=== PATIENT | female | born 1950 | race Caucasian/White ===

== ENCOUNTER 2020-10-31 14:16 | Emergency (ER) | payer MEDICARE ==
[~2020-10-31] VITALS: Ht 162.6 cm; Wt 69.9 kg
[2020-10-31 14:17] VITALS: BP 141/81
[2020-10-31] MEDS ORDERED: MACR50CA10 PO (14:24)
--- NOTE | 2020-10-31 15:16 | REP ---
INDICATION: PAIN/SWELLING. COMPARISON: None. TECHNIQUE: Left {lower extremity duplex venous scanning is performed from the groin to the ankle level. FINDINGS: The deep veins are anechoic and fully compressible from the groin to the popliteal fossa in the left lower extremity. Color flow imaging is homogeneous. Spectral Doppler interrogation demonstrates intact respiratory variation in flow and normal manual augmentation of flow. There is no evidence of deep vein thrombosis above the knee. There is no evidence of DVT in the visualized calf veins. Doppler interrogation of the contralateral common femoral vein shows normal symmetric respiratory phasicity. IMPRESSION: No evidence of DVT in the left lower extremity femoropopliteal veins. No DVT in the visible portions of the calf veins. There is a 3.9 cm Carlos's cyst in the left popliteal fossa. <Electronically signed by Tyler Sellers > 10/31/20 2010
[2020-10-31] MEDS ORDERED: ACETAMINOPHEN 500 MG TAB PO ONE (19:00)
--- NOTE | 2020-10-31 19:22 | REP ---
INDICATION: knee pain and LE swelling, no TAMI COMPARISON: None. TECHNIQUE: AP, lateral, bilateral oblique and sunrise views. FINDINGS: Mild tricompartmental osteoarthritic degenerative changes. No acute fracture or dislocation. No significant swelling. No obvious effusion. IMPRESSION: Mild tricompartmental arthritic changes. <Electronically signed by Sarabjit Mcguire > 10/31/20 [id number]
== END 2020-10-31 20:33 | disposition home or self-care (01) ==
LOC: M ED 14:16
DX: R22.42 Localized swelling, mass and lump, left lower limb (principal); Z88.0 Allergy status to penicillin

== ENCOUNTER → 2020-12-20 | Outpatient (CLI) | payer MEDICARE ==
[~2020-12-20] MED LIST: MACR50CA10 PO
--- NOTE | 2020-12-20 14:57 | REP ---
INDICATION: PAIN IN LT KNEE. COMPARISON: None. TECHNIQUE: Sagittal spin-echo proton density, T2 STIR and T2 FLASH. Coronal spin-echo proton density and fat suppressed proton density. Axial fat suppressed proton density. FINDINGS: There is grade 3 signal change seen within a truncated posterior horn of the medial meniscus. There is grade 3 signal change seen in the posterior horn of the lateral meniscus mid body contiguous with the superior articular surface. The anterior horn is within normal limits. The anterior and posterior cruciate ligaments are intact. The quadriceps and patellar tendons are intact. The medial and lateral collateral ligaments are intact. There is T2 hyper signal seen surrounding the mid and inferior portion of the medial collateral ligament. The medial and lateral patellar retinacula are intact. There is thinning and irregularity of the articular cartilages of all 3 compartments particularly the patellar articular cartilage and medial compartmental articular cartilages. There is a joint effusion with superior parapatellar plica. There is a 4.7 x 1 x 1.9 cm sized fluid collection seen between the tendons of the medial head of the gastrocnemius muscle and the semimembranosus tendon. IMPRESSION: 1. There is a bucket-handle tear of the medial meniscus. 2. The posterior horn of the lateral meniscus is torn. 3. 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 4. There is a joint effusion and parapatellar plica. 5. There is a 4.7 x 1 x 1.9 cm sized Carlos's cyst. 6. Other findings as described above. <Electronically signed by Diego Espinoza > 12/20/20 [id number]
== END ==
LOC: M PLAIMG 13:04
PROVIDERS: ATTEND Orthopaedic Surgery
DX: S83.252A Bucket-handle tear of lateral meniscus, current injury, left knee, initial encounter (principal); W18.30XA Fall on same level, unspecified, initial encounter; Y92.009 Unspecified place in unspecified non-institutional (private) residence as the place of occurrence of the external cause

== ENCOUNTER → 2021-01-17 | Outpatient (CLI) | payer MEDICARE | LOC: M LABSMTC 12:07 | PROVIDERS: ATTEND Anesthesiology | DX: Z01.818 Encounter for other preprocedural examination (principal); Z11.52 Encounter for screening for COVID-19 ==

== ENCOUNTER 2021-01-22 08:58 | Day surgery (SDC) | payer MEDICARE ==
[~2021-01-22] VITALS: Ht 162.6 cm; Wt 69.8 kg
[~2021-01-22 08:58] MED LIST changes: +LR 1,000 ML IV ONE; +VANCOMYCIN HCL 1,000 MG, VIAL MATE ADAPTER 1 EACH in NS 250 ML IV ONE
--- OUTSIDE RECORDS SUMMARY | 2021-01-22 09:07 | CCD ---
Author Author [facility] Organization [facility] Address Unknown Phone Unavailable Support Name Relationship Address Phone RE Next Of Kin Unknown Unavailable DANA HAGER Next Of Kin [facility] [place] [address] [place] [address] Unavailable Re-disclosure Warning The records that you are about to access may contain information from federally-assisted alcohol or drug abuse programs. If such information is present, then the following federally mandated warning applies: This information has been disclosed to you from records protected by federal confidentiality rules (42 CFR part 2). The federal rules prohibit you from making any further disclosure of this information unless further disclosure is expressly permitted by the written consent of the person to whom it pertains or as otherwise permitted by 42 CFR part 2. A general authorization for the release of medical or other information is NOT sufficient for this purpose. The Federal rules restrict any use of the information to criminally investigate or prosecute any alcohol or drug abuse patient.The records that you are about to access may contain highly sensitive health information, the redisclosure of which is protected by Article 27-F of the [facility] Public Health law. If you continue you may have access to information: Regarding HIV / AIDS; Provided by facilities licensed or operated by the [facility] Office of Mental Health; or Provided by the [facility] Office for People With Developmental Disabilities. If such information is present, then the following [facility] mandated warning applies: This information has been disclosed to you from confidential records which are protected by state law. State law prohibits you from making any further disclosure of this information without the specific written consent of the person to whom it pertains, or as otherwise permitted by law. Any unauthorized further disclosure in violation of state law may result in a fine or care home sentence or both. A general authorization for the release of medical or other information is NOT sufficient authorization for further disc losure. Medications No Information Insurance Providers Payer name Policy type / Coverage type Policy ID Covered alliance party ID Covered alliance party's relationship to beltran Policy Beltran Plan Information [facility] [employer] [id number] SP [id number] MEDICARE [id number] SP [id number] Problems, Conditions, and Diagnoses No Information Surgeries/Procedures No Information Results No Information Social History No Information
[2021-01-22] MEDS ORDERED: diphenhydrAMINE 50MG/ML VIAL (J1200) IV ONE (11:10)
[2021-01-22] MEDS ORDERED: EPINEPHrine INJ 1 MG/ML 1ML AMP As Ordered ONE (13:54)
[2021-01-22] MEDS ORDERED: fentaNYL 100 MCG/2 ML INJECTION (J3010) As Ordered ONE (14:06)
[2021-01-22] MEDS ORDERED: dexameTHASONE 4 MG/ML 1ML VIAL (J1100 PER 1MG) As Ordered ONE (14:06)
[2021-01-22] MEDS ORDERED: LIDOCAINE 2% 100MG/5ML SDV (FOR ANES.) As Ordered ONE (14:06)
[2021-01-22] MEDS ORDERED: MIDAZOLAM INJ 2MG/2ML VIAL (J2250 PER 1MG) As Ordered ONE (14:06)
[2021-01-22] MEDS ORDERED: ONDANSETRON 4MG/2ML VIAL As Ordered ONE (14:06)
[2021-01-22] MEDS ORDERED: propofoL 200 MG/20 ML VIAL As Ordered ONE (14:06)
[2021-01-22] MEDS ORDERED: BUPIVACAINE/EPIN 0.25% 30 ML VIAL As Ordered ONE (14:25)
[2021-01-22] MEDS ORDERED: ACETAMINOPHEN 1000MG 100ML IV BTL (OFIRMEV) (J0131 PER 10MG) As Ordered ONE (14:31)
--- NOTE | 2021-01-22 15:23 | ROOPDOC ---
[facility] Report Of Operation Report of Operation DATE OF PROCEDURE: 01/22/21 PREPROCEDURE DIAGNOSES: [Left knee medial meniscal bucket-handle tear with underlying try compartmental degenerative changes.]. POSTPROCEDURE DIAGNOSES: [Left knee medial meniscal posterior medial tear, tricompartmental degenerative changes of the knee]. PROCEDURE PERFORMED: [Left knee arthroscopy, partial medial meniscectomy.]. SURGEON: [Royce carbone], JAR FILLER: , ANESTHESIA: [General anesthesia]. ESTIMATED BLOOD LOSS: Approximately [20 mils] mL. COMPLICATIONS: [None]. REMARKS: [Try compartmental degenerative changes with softening of the cartilage and crabmeat appearance of the cartilage diffusely. No specific full-thickness cartilage deficits. Synovectomy was a bit red and inflamed. ACL and PCL seem intact.]. FINDINGS: [Posterior medial medial meniscal tear. No bucket-handle tear visualized. Mild lateral meniscus posterior root tear] SPECIMENS REMOVED: [Partial medial meniscectomy] PROCEDURE NOTE: . DESCRIPTION OF PROCEDURE: [Patient was met in the holding area. H&P was reviewed. Imaging and consent confirmed. Patient opted proceed with the above procedure. Taken down off room air as [facility]. Patient was transferred onto the operative room table. Under general psych in usual manner. Right leg was put in lithotomy position. Left leg was placed in the leg immobilizer with the knee flexed 90 degrees with a table break all bony prominences well-padded. Patient was then prepped and draped in usual manner. 20 he was on the left upper thigh but not used during the procedure Surgical timeout was performed Using the medial soft spot. Portals were infiltrated with Marcaine and epinephrine. Medial portal and the medial soft spot. Using a blunt trocar through the medial portal advanced into the suprapatellar pouch. Diagnostic arthroscopy was then performed. Inflamed synovium in the suprapatellar pouch. Softening of the cartilage on the patella and trochlear groove. No full- thickness cartilage loss. Medial lateral gutters were clear. Moving into the lateral compartment. There was softening and crabmeat appearance in areas of the lateral compartment. No specific tears in the meniscus possible posterior root tear. Meniscus was stable. Moving to the medial compartment. Used a needle for placement of the lateral compartment arthroscopic portal. Portal made with 11 blade. Blunt trocar visualized through the portal. Shaver introduced with a portal and fat pad debridement performed on arthroscopic guidance. Once we could visualize the medial compartment better. Ulnar gutter was clear, posterior medial tear of the medial meniscus. No bucket-handle tear. ACL and PCL intact. We then debrided the posterior medial medial meniscal tear first with a biter and then with the shaver. We performed a partial most meniscectomy back to a more stable endpoint. Another quick diagnostic arthroscopy was performed. We do not see any need for any further debridement all. Wound was suction dried. Medial and lateral arthroscopy portals were closed using 3-0 Monocryl and Steri-Strips. Sterile absorbent bandage was placed over the knee. Patient was then removed from the bolsters. Awakened from anesthesia. Placed onto the stretcher and taken to recovery in a stable manner. Plan: Patient to be weightbearing as tolerated. Follow-up in the office in 1 to 2 weeks Aspirin 81 mg p.o. twice daily for DVT prophylaxis for 30 days. ROYCE PERLA MD Jan 22, 2021 15:23
[2021-01-22] MEDS ORDERED: LR 1,000 ML IV SCH ×2 (15:25)
[2021-01-22] MEDS ORDERED: ONDANSETRON 4MG/2ML VIAL IV PRN (15:25)
[2021-01-22] MEDS ORDERED: OXYC1TAB23 PO (15:26)
[2021-01-22] MEDS: oxyCODONE 5MG TAB PO PRN ×2 (15:36→16:10)
[2021-01-22] MEDS: fentaNYL 100 MCG/2 ML INJECTION (J3010) IV PRN ×4 (15:36→15:53)
[2021-01-22] MEDS: HYDROMORPHONE HCL 0.5 MG/ 0.5 ML SYRINGE (J1170 PER 1) IV PRN ×4 (15:56→16:17)
[2021-01-22] MEDS ORDERED: ONDANSETRON 4MG/2ML VIAL IV SCH (18:15)
[2021-01-22 19:13] VITALS: BP 130/72
== END 2021-01-22 19:20 | disposition home or self-care (01) ==
LOC: M SDC 08:58
PROVIDERS: ATTEND Orthopaedic Surgery
DX: S83.212A Bucket-handle tear of medial meniscus, current injury, left knee, initial encounter (principal); X58.XXXA Exposure to other specified factors, initial encounter; Y92.89 Other specified places as the place of occurrence of the external cause; Y93.9 Activity, unspecified; Y99.9 Unspecified external cause status; Z87.891 Personal history of nicotine dependence; Z88.0 Allergy status to penicillin
CPT/HCPCS: 29881; J0131; J0171; J1100; J1170; J1200; J2250; J2405; J3010; J3370

== ENCOUNTER → 2023-06-09 | Outpatient (REF) | payer MEDICARE ==
[~2023-06-09] MED LIST changes: -LR 1,000 ML IV ONE; +OXYC1TAB23 PO; -VANCOMYCIN HCL 1,000 MG, VIAL MATE ADAPTER 1 EACH in NS 250 ML IV ONE
[2023-06-09 17:53] LABS: APPEARANCE, URINE CLEAR (CLEAR); BACTERIA, URINE AUTO NEGATIVE (NEGATIVE); BILIRUBIN, URINE AUTO NEGATIVE (NEGATIVE); BLOOD, URINE BLOOD NEGATIVE (NEGATIVE); COLOR, URINE YELLOW (YELLOW); GLUCOSE, URINE (UA) AUTO NEGATIVE (NEGATIVE); KETONE, URINE AUTO NEGATIVE (NEGATIVE); LEUKOCYTE ESTERASE, URINE AUTO NEGATIVE (NEGATIVE); NITRITE, URINE AUTO NEGATIVE (NEGATIVE); PROTEIN, URINE AUTO NEGATIVE (NEGATIVE); RBC, URINE AUTO 1 /HPF (0-3); SPECIFIC GRAVITY URINE AUTO 1.006 (1.002-1.035); SQUAMOUS EPITHELIAL CELL UR AU 2 /HPF (0-6); UROBILINOGEN, URINE AUTO 0.2 mg/dL (0.0-2.0); WBC, URINE AUTO 0 /HPF (0-3)
== END ==
LOC: M SMT 17:05
PROVIDERS: ATTEND Nurse Practitioner Family
DX: N39.0 Urinary tract infection, site not specified (principal)

== ENCOUNTER → 2023-06-21 | Outpatient (CLI) | payer MEDICARE | LOC: M RAD 07:29 | PROVIDERS: ATTEND Nurse Practitioner Family | DX: N39.0 Urinary tract infection, site not specified (principal) ==

== ENCOUNTER → 2023-06-25 | Outpatient (CLI) | payer MEDICARE ==
[2023-06-25 15:43] LABS: BLOOD UREA NITROGEN 14 MG/DL (9-23); CALCIUM LEVEL 9.4 MG/DL (8.3-10.6); CARBON DIOXIDE LEVEL 33 MMOL/L (20-31); CHLORIDE LEVEL 103 MMOL/L (98-107); CREATININE FOR GFR 0.78 MG/DL (0.55-1.30); GLOMERULAR FILTRATION RATE > 60.0 (>39); GLUCOSE, FASTING 86 MG/DL (74-106); SODIUM LEVEL 141 MMOL/L (136-145)
== END ==
LOC: M LAB 13:24
PROVIDERS: ATTEND Nurse Practitioner Family
DX: D17.71 Benign lipomatous neoplasm of kidney (principal)

== ENCOUNTER → 2023-07-16 | Outpatient (CLI) | payer MEDICARE ==
[~2023-07-16] MED LIST changes: +GASTROGRAFIN SOLUTION 30ML ONE; +ISOVUE-370 76% 100ML VIAL ONE
== END ==
LOC: M PLAIMG 06:43
PROVIDERS: ATTEND Nurse Practitioner Family
DX: D17.71 Benign lipomatous neoplasm of kidney (principal); N28.1 Cyst of kidney, acquired; R91.1 Solitary pulmonary nodule
CPT/HCPCS: 74170; Q9963; Q9967

== ENCOUNTER → 2023-08-10 | Outpatient (REF) | payer MEDICARE ==
[~2023-08-10] MED LIST changes: -GASTROGRAFIN SOLUTION 30ML ONE; -ISOVUE-370 76% 100ML VIAL ONE
[2023-08-10 13:34] LABS: APPEARANCE, URINE HAZY (CLEAR); BACTERIA, URINE AUTO NEGATIVE (NEGATIVE); BILIRUBIN, URINE AUTO NEGATIVE (NEGATIVE); BLOOD, URINE BLOOD NEGATIVE (NEGATIVE); CALCIUM OXALATE CRYSTALS LARGE; COLOR, URINE YELLOW (YELLOW); GLUCOSE, URINE (UA) AUTO NEGATIVE (NEGATIVE); KETONE, URINE AUTO NEGATIVE (NEGATIVE); LEUKOCYTE ESTERASE, URINE AUTO NEGATIVE (NEGATIVE); MUCUS, URINE SMALL (NEGATIVE); NITRITE, URINE AUTO NEGATIVE (NEGATIVE); PROTEIN, URINE AUTO NEGATIVE (NEGATIVE); RBC, URINE AUTO 1 /HPF (0-3); SPECIFIC GRAVITY URINE AUTO 1.018 (1.002-1.035); SQUAMOUS EPITHELIAL CELL UR AU 7 /HPF (0-6); UROBILINOGEN, URINE AUTO 0.2 mg/dL (0.0-2.0); WBC, URINE AUTO 2 /HPF (0-3)
== END ==
LOC: M SMT 12:52
PROVIDERS: ATTEND Physician Assistant
DX: N39.0 Urinary tract infection, site not specified (principal)

== ENCOUNTER → 2023-08-11 | Outpatient (REF) | payer MEDICARE, OTHER | LOC: M SFHCDERM 13:38 | PROVIDERS: ATTEND Physician Assistant | DX: L82.1 Other seborrheic keratosis (principal) ==

== ENCOUNTER → 2023-08-23 | Outpatient (CLI) | payer MEDICARE | LOC: M RAD 08:37 | PROVIDERS: ATTEND Otolaryngology | DX: J32.0 Chronic maxillary sinusitis (principal) ==

== ENCOUNTER → 2024-03-06 | Outpatient (CLI) | payer MEDICARE | LOC: M RAD 15:13 | PROVIDERS: ATTEND Internal Medicine Critical Care Medicine | DX: R91.8 Other nonspecific abnormal finding of lung field (principal) ==

== ENCOUNTER → 2024-07-04 | Outpatient (CLI) | payer MEDICARE | LOC: M WHC 10:12 | PROVIDERS: ATTEND Internal Medicine Cardiovascular Disease | DX: G45.3 Amaurosis fugax (principal) ==

== ENCOUNTER → 2024-09-11 | Outpatient (REF) | payer MEDICARE ==
[2024-09-11 16:25] LABS: APPEARANCE, URINE CLEAR (CLEAR); BACTERIA, URINE AUTO NEGATIVE (NEGATIVE); BILIRUBIN, URINE AUTO NEGATIVE (NEGATIVE); BLOOD, URINE BLOOD NEGATIVE (NEGATIVE); GLUCOSE, URINE (UA) AUTO NEGATIVE (NEGATIVE); KETONE, URINE AUTO NEGATIVE (NEGATIVE); LEUKOCYTE ESTERASE, URINE AUTO 3+ (NEGATIVE); MUCUS, URINE SMALL (NEGATIVE); NITRITE, URINE AUTO NEGATIVE (NEGATIVE); PROTEIN, URINE AUTO NEGATIVE (NEGATIVE); RBC, URINE AUTO 2 /HPF (0-3); SPECIFIC GRAVITY URINE AUTO 1.003 (1.002-1.035); SQUAMOUS EPITHELIAL CELL UR AU 0 /HPF (0-6); UROBILINOGEN, URINE AUTO 0.2 mg/dL (0.0-2.0); WBC, URINE AUTO 23 /HPF (0-3)
== END ==
LOC: M SMT 15:48
PROVIDERS: ATTEND Physician Assistant
DX: N39.0 Urinary tract infection, site not specified (principal)

== ENCOUNTER → 2025-02-05 | Outpatient (CLI) | payer MEDICARE | LOC: M SLEEP HO 12:05 | PROVIDERS: ATTEND Internal Medicine Critical Care Medicine | DX: R40.0 Somnolence (principal) ==